=== PATIENT | male | born 2000 | race Caucasian/White ===

== ENCOUNTER → 2019-08-01 | Outpatient (CLI) | payer OTHER ==
--- NOTE | 2019-08-01 12:26 | Diagnostic Imaging Report ---
PROCEDURE: US Scrotum. TECHNIQUE: Multiple real-time grayscale images were obtained over the scrotum in various projections bilaterally. INDICATION: Testicular pain. COMPARISON: There are no prior studies available for comparison. FINDINGS: Both testicles were identified. The right testicle measures 4.9 x 2.4 x 3.0 cm while the left testicle is estimated at 4.7 x 2.6 x 3.1 cm. There is no sign of a solid testicular mass and there is no sign of torsion. The epididymis on the right is unremarkable. However, the epididymis on the left does contain a small cyst. The epididymis itself also seems somewhat heterogeneous and hyperemic. This appearance does suggest epididymitis. Clinical follow-up is recommended. There is no significant hydrocele or varicocele formation. IMPRESSION: 1. The appearance of the epididymis on the left does suggest epididymitis. Clinical follow-up is recommended. 2. There is no acute abnormality noted otherwise. 3. There is no solid testicular mass identified and there is no sign of torsion. Dictated by: Dictated on workstation # [id number]
== END ==
LOC: RAD 10:27
PROVIDERS: ATTEND Nurse Practitioner Family
DX: N50.812 Left testicular pain (principal); N50.89 Other specified disorders of the male genital organs
CPT/HCPCS: 76870